=== PATIENT | female | born 1965 | race Caucasian/White ===

== ENCOUNTER 2019-10-30 18:19 | Emergency (ER) | payer BC ==
--- NOTE | 2019-10-30 18:37 | PDOC ---
Rapid Medical Evaluation Time Seen by Provider: 10/30/19 18:32 Medical Evaluation: 10/30/19 18:32 I have performed a brief in-person evaluation of this patient. The patient presents with a chief complaint of: no PMH, intermittent chest pain x 1 month, worsening since yesterday. recent D&C by OB end of september on "testosterone pellets" Pertinent physical exam findings: well appearing, VSS I have ordered the following: cardiac workup The patient will proceed to the ED for further evaluation. Discharge Disposition - Diagnosis Chest pain - Referrals - Patient Instructions - Post Discharge Activity
[2019-10-30 18:38] VITALS: TEMP 98.4; BMI 32.2
--- NOTE | 2019-10-30 19:32 | PDOC ---
Attending Attestation - Resident Resident Name: Emiliano Knight - ED Attending Attestation I have performed the following: I have examined & evaluated the patient, The case was reviewed & discussed with the resident, I agree w/resident's findings & plan - HPI HPI: 10/30/19 19:32 See resident HPI - Physicial Exam PE: 10/30/19 22:37 see resident exam - Medical Decision Making 10/30/19 22:37 54-year-old female with intermittent chest wall and upper back pain x1 month Chest x-ray shows no acute abnormality EKG shows no significant changes Plan for troponin x2, EKG x2 and d-dimer as well as BNP due to intermittent dependent edema Patient is feeling well on reevaluation at 10 PM, she states she would like to go home if work-up is normal Plan for DC pending results with outpatient cardiology follow-up Of note patient had a normal stress test and echocardiogram done in May
--- NOTE | 2019-10-30 19:59 | PDOC ---
History of Present Illness - General Chief Complaint: Chest Pain Stated Complaint: CHEST PAIN Time Seen by Provider: 10/30/19 18:32 History Source: Patient Exam Limitations: No Limitations - History of Present Illness Initial Comments: 10/30/19 19:42 PCP/Cards: Dr. Ruma Garcia HPI: 54yo never-smoker F PMH HLD (high LDL, familial, cannot take statin), pre- DM (40lb weight gain over past year, intermittently compliant with metformin, A1C 6.5+), presenting with intermittent chest pain for over the past month. Patient reports one month of intermittent chest pains, reports weekly pangs of discomfort (not sharp, not tight, not heavy) either substernally, midclavicular line below the breast, or in the upper left back, that last for several hours and resolve spontaneously. These pains are worsened by stress, she denies any alleviating factors, has not tied medication, but does report reduced frequency of episodes with sleeping on her right side, she also endorses the sensation of needing to stretch. [facility] she has only the pain in the back, described as "not dramatic." Her physician friend did a 1 lead EKG at home with her and noted MN depressions and said to go the ER. Of note, she was sick 3 weeks ago, but the pains predated this illness and she denies a burning / positional component of her pain. Patient has gained 40lbs over the last year, an avid hiker, had three surgeries on her bilateral feet for foot pain, less active during this period. She also experiences bilateral LE swelling, was evaluated at a [facility] and was told she has "flow dysfunction" denies a history of blood clot in self of family, no recent long travels ([employer] in Aug 2019) or immobilization, never smoker, no unilateral pain/swelling but does report that the L leg is chronically larger than the right. Piper any SOB at rest, palpitations, cough, pleuritic chest pain. Does endorse dyspnea on exertion with exercise over the last year associated temporally with her weight gain. No family history of ACS or heart disease / stoke. Endorses normal ECHO November 2018 and normal Stress test May 2019. All: NKDA Meds: Per chart PMH: As above PSH: 3x foot surgery SHx: Denies toxic habits, never smoked FHx: No FHx ACS/CVD, +LDL elevations Past History - Past Medical History Allergies/Adverse Reactions: Allergies Allergy/AdvReac Type Severity Reaction Status Date / Time No Known Allergies Allergy Verified 10/30/19 18:32 COPD: No - Psycho Social/Smoking Cessation Hx Smoking History: Never smoked Hx Alcohol Use: No Drug/Substance Use Hx: No Review of Systems - Review of Systems Able to Perform ROS?: Yes Is the patient limited Hungarian proficient: Yes Constitutional: No: Chills, Fever, Loss of Appetite HEENTM: No: Nose Congestion, Throat Pain Respiratory: No: Cough, Shortness of Breath Cardiac (ROS): Yes: See HPI, Chest Pain. No: Irregular Heart Rate, Lightheadedness, Palpitations, Syncope, Chest Tightness ABD/GI: No: Constipated, Diarrhea, Nausea, Vomiting : No: Burning, Dysuria, Frequency Musculoskeletal: No: Muscle Pain, Muscle Weakness, Neck Pain Integumentary: No: Pruritus, Rash Neurological: No: Headache, Numbness, Tingling, Weakness Psychiatric: No: Change in Appetite Endocrine: Yes: See HPI, Change in Weight. No: Increased Thirst, Increased Urine Hematologic/Lymphatic: No: Anemia, Blood Clots, Easy Bleeding All Other Systems: Reviewed and Negative *Physical Exam - Vital Signs Last Vital Signs Temp Pulse Resp BP Pulse Ox 98.4 F 82 20 156/93 97 20 18:32 1920 18:32 20 18:32 1920 18:32 10/30/19 18:32 - Physical Exam 10/30/19 20:02 Vitals reviewed, AFVSS, mildly hypertensive GEN: Well appearing, appears stated age, NAD, comfortable. AAOx3. HEENT: NCAT, EOMI, PERRL. Sclera anicteric, noninjected. No facial asymmetry. Moist mucous membranes. Normal voice. Trachea midline. CV: RRR, S1/S2, no murmurs / rubs / gallops appreciated. Chest wall non-tender, no friction rub appreciated. LUNG: CTAB, normal work of breathing. No wheezes, rales, rhonchi. No cough. Speaking full sentences. GI: Soft, NTND, +BS, no guarding, no rebound. No masses. Neg CVAT b/l. EXTREMITIES: 2+ distal pulses. No LE edema. No obvious deformities of all extremities. SKIN: Warm, dry, no rashes appreciated, non-jaundiced. PSYCH: Normal mood and affect. Cooperative and appropriate. NEURO: CN grossly intact. Moving all extremities well. Normal strength and sensation grossly. Heart Score/ECG Review - History History: Slightly suspicious - Electrocardiogram EKG: Normal - Age Age: 45-65 - Risk Factors Risk Factors Heart Score: Yes Hx Hypercholesterolemia Based on the list above the patient has:: 1-2 risk factors - Troponin Troponin: </= normal limit - Score Heart Score - Total: 2 ED Treatment Course - LABORATORY CBC & Chemistry Diagram: 10/30/19 18:50 10/30/19 18:50 Medical Decision Making - Medical Decision Making 10/30/19 20:00 54yo F PMH HLD (high LDL, familial, cannot take statin), pre-DM (40lb weight gain over past year, intermittently compliant with metformin, A1C 6.5+), presenting with intermittent chest pain for over the past month. History concerning for venous flow issues, HLD, recent weight gain. Reassuring for pain description, subacute vs chronic course, pain precessing URI symptoms. Exam unremarkable, stable vitals without tachypnea or tachycardia. HEART Score 2. Cannot PERC out given age. Wells Score 0. DDX: MSK pain, r/o ACS, yahir-carditis , less likely PE, pneumothorax. - CBC, CMP, D-dimer, Cardiac Profile - CXR, EKG EKG: Normal rate, NSR, normal axis, intervals wnl, no ST changes noted CXR: With no acute pathology on official read Dispo: Home 10/30/19 20:16 - No leukocytosis, Hgb 15.4 (mild elevation) 10/30/19 21:00 - ALT 64 (mildly elevated) - Electrolytes, kidneys, troponin wnl Dispo: Home 10/30/19 23:42 - Conversation with azure developer, patient to follow up on outpatient basis Discharge - Discharge Information Problems reviewed: Yes Clinical Impression/Diagnosis: Chest pain Qualifiers: Chest pain type: unspecified Qualified Code(s): R07.9 - Chest pain, unspecified Condition: Improved Disposition: HOME - Admission No - Follow up/Referral Referrals: ON STAFF,NOT [Primary Care Provider] - - Patient Discharge Instructions Patient Printed Discharge Instructions: DI for Atypical Chest Pain Additional Instructions: You were seen and evaluated at [facility] for your chest pain. Your work up was negative. Please continue your home medications as prescribed. You can take anti-inflammatory medications such as Motrin for your pain. Please follow up with your primary care doctor in the next 1-3 days for continued care and evaluation. You were found to have an elevated ALT (65), please discuss this with your doctor. Return to the ED for any new or concerning symptoms. Thank you for coming in. - Post Discharge Activity
[2019-10-30 20:01] LABS: BASO % 0.5 % (0-2.0); EOS % 2.4 % (0-4.5); HEMATOCRIT 45.9 % (32.4-45.2); HEMOGLOBIN 15.4 GM/dL (10.7-15.3); LYMPH % 36.2 % (8-40); MCH 29.4 pg (25.7-33.7); MCHC 33.6 g/dl (32.0-36.0); MEAN CELL VOLUME 87.4 fl (80-96); MEAN PLT VOLUME 8.9 fl (7.5-11.1); MONO % 6.3 % (3.8-10.2); NEUT % 54.6 % (42.8-82.8); PLATELET COUNT 298 K/MM3 (134-434); RBC 5.25 M/mm3 (3.60-5.2); RDW 13.6 % (11.6-15.6); WHITE BLOOD COUNT 9.6 K/mm3 (4.0-10.0)
[2019-10-30 20:33] LABS: MAGNESIUM 2.2 mg/dL (1.8-2.4)
[2019-10-30 20:46] LABS: ALBUMIN 3.8 g/dl (3.4-5.0); BILIRUBIN,TOTAL 0.2 mg/dL (0.2-1); BLOOD UREA NITROGEN 17.4 mg/dL (7-18); CALCIUM 9.2 mg/dL (8.5-10.1); CREATININE 0.9 mg/dL (0.55-1.3); POTASSIUM 4.3 mmol/L (3.5-5.1); TOT PROT 7.2 g/dl (6.4-8.2)
[2019-10-30 21:43] LABS: INR 0.97 (0.83-1.09); PROTHROMBIN TIME (PATIENT) 11.4 SEC (9.7-13.0)
[2019-10-30 21:46] LABS: ACTIVATED PTT 35.2 SECONDS (25.2-36.5)
[2019-10-30 23:16] LABS: N-TERMINAL BNP 30.6 pg/ml (5-125)
[2019-10-31 00:09] VITALS: BP 155/79; PULSE 80
--- NOTE | 2019-10-31 14:14 | EKG ---
Test Reason : Blood Pressure : / mmHG Vent. Rate : 076 BPM Atrial Rate : 076 BPM P-R Int : 188 ms QRS Dur : 084 ms QT Int : 390 ms P-R-T Axes : 043 079 034 degrees QTc Int : 438 ms NORMAL SINUS RHYTHM CANNOT RULE OUT ANTERIOR INFARCT (CITED ON OR BEFORE 30-OCT-2019) ABNORMAL ECG WHEN COMPARED WITH ECG OF 30-OCT-2019 18:31, QUESTIONABLE CHANGE IN INITIAL FORCES OF ANTEROSEPTAL LEADS Confirmed by KRISTEN MCCURDY MD ([id number]) on 10/31/2019 2:13:59 PM Referred By: Confirmed By:KRISTEN MCCURDY MD
--- NOTE | 2019-10-31 14:19 | EKG ---
Test Reason : Blood Pressure : / mmHG Vent. Rate : 080 BPM Atrial Rate : 080 BPM P-R Int : 182 ms QRS Dur : 088 ms QT Int : 372 ms P-R-T Axes : 058 079 051 degrees QTc Int : 429 ms NORMAL SINUS RHYTHM POSSIBLE RIGHT VENTRICULAR HYPERTROPHY SEPTAL INFARCT , AGE UNDETERMINED POSSIBLE LATERAL INFARCT , AGE UNDETERMINED ABNORMAL ECG NO PREVIOUS ECGS AVAILABLE Confirmed by KRISTEN MCCURDY MD ([id number]) on 10/31/2019 2:19:04 PM Referred By: Confirmed By:KRISTEN MCCURDY MD
== END 2019-10-31 00:11 | disposition home or self-care (01) ==
LOC: JER 18:19
DX: R07.9 Chest pain, unspecified (principal)
CPT/HCPCS: 36415; 71046-TC-FY; 80053; 82550; 83735; 83880; 84484; 85025; 85379; 85610; 85730; 93005; 93010; 99285-25